=== PATIENT | male | born 1985 | race Caucasian/White ===

== ENCOUNTER 2017-06-14 23:37 | Emergency (ER) | payer OTHER ==
[2017-06-14 23:46] VITALS: TEMP 98.2
[2017-06-15] MEDS ORDERED: KETOROLAC 30 MG/ML 1 ML VIAL IVP STA
[2017-06-15] MEDS ORDERED: SODIUM CHLORIDE 0.9% 500 ML IV STA
[2017-06-15] MEDS ORDERED: MORPHINE SULFATE 10 MG/ML SYRINGE IV STA
[2017-06-15] MEDS ORDERED: ONDANSETRON 4 MG/2 ML VIAL IVP STA
--- NOTE | 2017-06-15 00:27 | ED ---
General Adult HPI - General Chief complaint: Abdominal Pain Stated complaint: Abd Pain Time Seen by Provider: 06/14/17 23:45 Source: patient, RN notes reviewed, old records reviewed Mode of arrival: wheelchair Limitations: no limitations - History of Present Illness Initial comments: This is a 30-year-old male the ER for evaluation of severe left-sided flank pain with an anterior groin pain. Patient's pain was sudden onset about 3 hours. Patient has no medical history no surgical history no prior history of prior similar pain. Patient states he follows abdominal cramping. PAtient was just about to fo to bed and became severe pain. He also states mild difficulty with urination. Mild nausea no vomiting. No fevers. No sick contacts or travel history. - Related Data Allergies Allergy/AdvReac Type Severity Reaction Status Date / Time No Known Allergies Allergy Verified 06/14/17 23:46 Review of Systems ROS Statement: Those systems with pertinent positive or pertinent negative responses have been documented in the HPI. ROS Other: All systems not noted in ROS Statement are negative. Past Medical History Past Medical History: No Reported History History of Any Multi-Drug Resistant Organisms: None Reported Past Surgical History: No Surgical Hx Reported Past Psychological History: Anxiety, Depression Smoking Status: Never smoker Past Alcohol Use History: None Reported Past Drug Use History: None Reported General Exam Limitations: no limitations General appearance: alert, in no apparent distress, anxious Head exam: Present: atraumatic, normocephalic, normal inspection Eye exam: Present: normal appearance, PERRL, EOMI. Absent: scleral icterus, conjunctival injection, periorbital swelling ENT exam: Present: normal exam, mucous membranes moist Neck exam: Present: normal inspection. Absent: tenderness, meningismus, lymphadenopathy Respiratory exam: Present: normal lung sounds bilaterally. Absent: respiratory distress, wheezes, rales, rhonchi, stridor Cardiovascular Exam: Present: regular rate, normal rhythm, normal heart sounds. Absent: systolic murmur, diastolic murmur, rubs, gallop, clicks GI/Abdominal exam: Present: soft, normal bowel sounds. Absent: distended, tenderness, guarding, rebound, rigid Extremities exam: Present: normal inspection, full ROM, normal capillary refill. Absent: tenderness, pedal edema, joint swelling, calf tenderness Back exam: Present: normal inspection Neurological exam: Present: alert, oriented X3, CN II-XII intact Psychiatric exam: Present: normal affect, normal mood Skin exam: Present: warm, dry, intact, normal color. Absent: rash Course Vital Signs 06/14/17 23:44 Temperature 98.2 F Pulse Rate 90 Respiratory 20 Rate Blood Pressure 155/89 O2 Sat by Pulse 98 Oximetry - Reevaluation(s) Reevaluation #1: 06/15/17 01:09 pain currently is adequately controlled Medical Decision Making - Medical Decision Making 32 male to the ED co severe sudden onset left flank pain, patient has Left kidney stone, severe pain now controlled, adequately hydrated and ok for discharge home - Lab Data Result diagrams: 06/15/17 00:20 06/15/17 00:20 Lab Results 06/15/17 06/15/17 06/15/17 Range/Units 00:20 00:20 00:20 WBC 14.1 H (3.8-10.6) k/uL RBC 5.37 (4.30-5.90) m/uL Hgb 15.2 (13.0-17.5) gm/dL Hct 45.8 (39.0-53.0) % MCV 85.3 (80.0-100.0) fL MCH 28.4 (25.0-35.0) pg MCHC 33.3 (31.0-37.0) g/dL RDW 14.2 (11.5-15.5) % Plt Count 213 (150-450) k/uL Neutrophils % 86 % Lymphocytes % 8 % Monocytes % 5 % Eosinophils % 1 % Basophils % 0 % Neutrophils # 12.1 H (1.3-7.7) k/uL Lymphocytes # 1.1 (1.0-4.8) k/uL Monocytes # 0.7 (0-1.0) k/uL Eosinophils # 0.1 (0-0.7) k/uL Basophils # 0.0 (0-0.2) k/uL Sodium 139 (137-145) mmol/L Potassium 3.5 (3.5-5.1) mmol/L Chloride 103 (98-107) mmol/L Carbon Dioxide 19 L (22-30) mmol/L Anion Gap 17 mmol/L BUN 19 (9-20) mg/dL Creatinine 1.30 H (0.66-1.25) mg/dL Est GFR (MDRD) Af Amer >60 (>60 ml/min/1.73 sqM) Est GFR (MDRD) Non-Af >60 (>60 ml/min/1.73 sqM) Glucose 149 H (74-99) mg/dL Plasma Lactic Acid Jose A 5.2 H* (0.7-2.0) mmol/L Calcium 10.0 (8.4-10.2) mg/dL Total Bilirubin 0.8 (0.2-1.3) mg/dL AST 73 H (17-59) U/L ALT 194 H (21-72) U/L Alkaline Phosphatase 80 (38-126) U/L Total Protein 7.5 (6.3-8.2) g/dL Albumin 4.7 (3.5-5.0) g/dL Amylase 41 (30-110) U/L Lipase 80 (23-300) U/L - Radiology Data Radiology results: report reviewed (CT abd pelvis positive for kidney stone Left ), image reviewed Disposition Clinical Impression: Left ureteral calculus Disposition: HOME SELF-CARE Condition: Good Instructions: Kidney Stones (ED) Referrals: Charles Perez MD [Primary Care Provider] - 1-2 days
[2017-06-15 00:40] LABS: Basophils % (A) 0 %; CH 29.5; CHCM 34.7; Eosinophils # (A) 0.1 k/uL (0-0.7); Eosinophils % (A) 1 %; HCT 45.8 % (39.0-53.0); HDW 2.48; HGB 15.2 gm/dL (13.0-17.5); Luc # (Auto) 0.09; Luc % (Auto) 1; Lymphocytes # (A) 1.1 k/uL (1.0-4.8); Lymphocytes % (A) 8 %; MCH 28.4 pg (25.0-35.0); MCHC 33.3 g/dL (31.0-37.0); MCV 85.3 fL (80.0-100.0); Mean Platelet Volume 8.4; Monocytes # (A) 0.7 k/uL (0-1.0); Monocytes % (A) 5 %; Neutrophils # (A) 12.1 k/uL (1.3-7.7); Neutrophils % (A) 86 %; RBC 5.37 m/uL (4.30-5.90); RDW 14.2 % (11.5-15.5); WBC 14.1 k/uL (3.8-10.6); WBC (Perox) 14.05
[2017-06-15 00:46] LABS: ALT 194 U/L (21-72); AST 73 U/L (17-59); Alkaline Phosphatase 80 U/L (38-126); Amylase 41 U/L (30-110); Anion Gap 17 mmol/L; Blood Urea Nitrogen 19 mg/dL (9-20); Carbon Dioxide 19 mmol/L (22-30); Chloride 103 mmol/L (98-107); Glucose 149 mg/dL (74-99); Non-African American GFR(MDRD) >60 (>60 ml/min/1.73 sqM); Potassium 3.5 mmol/L (3.5-5.1); Sodium 139 mmol/L (137-145); Total Bilirubin 0.8 mg/dL (0.2-1.3); Total Protein 7.5 g/dL (6.3-8.2)
--- NOTE | 2017-06-15 01:01 | CT ---
EXAMINATION TYPE: CT abdomen pelvis wo con DATE OF EXAM: 06/15/2017 COMPARISON: NONE HISTORY: left flank pain CT DLP: 307.80 mGycm Automated exposure control for dose reduction was used. TECHNIQUE: Helical acquisition of images was performed from the lung bases through the pelvis. FINDINGS: Lung bases are clear of consolidation. There is no pleural effusion. Heart size is normal. Liver spleen pancreas appear normal. Gallbladder appears normal. Bile ducts are not dilated. There is no adrenal mass. There is a faint 2 mm calcification at the left ureteral vesicle junction. There is left-sided hydronephrosis and mild hydroureter. I see no definite calculi within the kidneys . There is no intestinal wall thickening. There are no dilated loops. Appendix is not definitely seen. There is no sign of appendicitis. There is no retroperitoneal adenopathy. There is no ascites. The abrahan ny structures are intact. IMPRESSION: MILD LEFT HYDRONEPHROSIS. TINY OBSTRUCTING CALCULUS AT THE LEFT URETEROVESICAL JUNCTION.
[2017-06-15] MEDS ORDERED: TAMSULOSIN 0.4 MG CAP.ER.24H PO STA (01:08)
[2017-06-15] MEDS ORDERED: SODIUM CHLORIDE 0.9% 1,000 ML IV STA ×3 (01:08)
[2017-06-15 01:16] LABS: Creatine Kinase MB 1.3 ng/mL (0.0-2.4)
[2017-06-15] MEDS ORDERED: HYDROmorphone 1 MG/ML 1 ML SYRINGE IVP STA (01:17)
[2017-06-15 03:06] VITALS: BP 129/60; PULSE 73; RESP 16
== END 2017-06-15 03:05 | disposition home or self-care (01) ==
LOC: EC 23:37
DX: N20.1 Calculus of ureter (principal); R11.0 Nausea
CPT/HCPCS: 36415; 80053; 82150; 82550; 82553; 83605; 83690; 85025; 74176; 99284; 96374; 96375 ×3; 96361 ×3; J2270; J2405; J1885; J1170

== ENCOUNTER 2017-08-13 03:39 | Emergency (ER) | payer OTHER ==
[2017-08-13 04:20] LABS: Amphetamine Screen,Urine Detected (NotDetected); Benzodiazepines Screen,Urine Not Detected (NotDetected); Cocaine Screen,Urine Not Detected (NotDetected); Methadone Screen, Urine Not Detected (NotDetected); Opiate Screen,Urine Not Detected (NotDetected); Phencyclidine Screen,Urine Not Detected (NotDetected); Tricyclic Antidepressant,Urine Not Detected (NotDetected)
[2017-08-13 04:21] LABS: Barbiturate Screen,Urine Not Detected (NotDetected); Oxycodone Screen, Urine Detected (NotDetected); Urn Cannabinoid Scrn Detected (NotDetected)
[2017-08-13] MEDS ORDERED: SODIUM CHLORIDE 0.9% 1,000 ML IV STA (05:03)
[2017-08-13] MEDS ORDERED: LORazepam 2 MG/ML INJ IV STA ×2 (05:04→05:34)
[2017-08-13 05:12] LABS: Basophils # (A) 0.1 k/uL (0-0.2); Basophils % (A) 1 %; Eosinophils % (A) 0 %; HCT 43.9 % (39.0-53.0); HGB 14.3 gm/dL (13.0-17.5); Lymphocytes % (A) 42 %; MCH 28.9 pg (25.0-35.0); MCHC 32.6 g/dL (31.0-37.0); MCV 88.7 fL (80.0-100.0); Monocytes # (A) 0.4 k/uL (0-1.0); Monocytes % (A) 5 %; Neutrophils # (A) 3.5 k/uL (1.3-7.7); Neutrophils % (A) 49 %; Platelet Count 189 k/uL (150-450); RBC 4.96 m/uL (4.30-5.90); WBC 7.2 k/uL (3.8-10.6)
[2017-08-13 05:18] LABS: ALT 28 U/L (21-72); AST 31 U/L (17-59); Acetaminophen <10.0 ug/mL; Albumin 4.5 g/dL (3.5-5.0); Alkaline Phosphatase 70 U/L (38-126); Anion Gap 16 mmol/L; Blood Urea Nitrogen 13 mg/dL (9-20); Calcium 8.5 mg/dL (8.4-10.2); Carbon Dioxide 24 mmol/L (22-30); Chloride 105 mmol/L (98-107); Glucose 114 mg/dL (74-99); Potassium 3.5 mmol/L (3.5-5.1); Salicylate <1.0 mg/dL; Sodium 145 mmol/L (137-145); Total Bilirubin 0.3 mg/dL (0.2-1.3); Total Protein 7.4 g/dL (6.3-8.2)
[2017-08-13] MEDS ORDERED: ONDANSETRON 4 MG/2 ML VIAL IVP STA (05:27)
[2017-08-13] MEDS ORDERED: ZIPRASIDONE 20 MG CAP PO STA (05:33)
[2017-08-13 05:36] LABS: Alcohol 289 mg/dL
[2017-08-13] MEDS ORDERED: ZIPRASIDONE 20 MG VIAL IM PRN (05:37)
--- NOTE | 2017-08-13 07:32 | ED ---
Psych HPI - General Source: EMS Mode of arrival: EMS Limitations: altered mental status (appears intoxicated) - History of Present Illness MD Complaint: altered mental status -: unknown Quality: constant Improves With: none Worsens With: alcohol <RicardoLars - Last Filed: 08/13/17 07:27> <Juan Calabrese - Last Filed: 08/13/17 13:51> - General Chief Complaint: Psychiatric Symptoms Stated Complaint: ETOH Time Seen by Provider: 08/13/17 04:27 - History of Present Illness Initial Comments: This patient is a 32-year-old man brought in to have evaluation after 911 was called for extremely intoxicated person. The patient does admit to drinking alcohol and had also possibly taken some sort of pill but he is not know what he was given. The patient is denying any attempt at overdose or any suicidal ideation. Denies depression. The patient is denying any pain, cough, or dyspnea and he did want to go home. (Lars Silva) - Related Data Home Medications Medication Instructions Recorded Confirmed Escitalopram [Lexapro] 10 mg PO DAILY 08/13/17 08/13/17 Allergies Allergy/AdvReac Type Severity Reaction Status Date / Time No Known Allergies Allergy Verified 08/13/17 09:23 Review of Systems ROS Other: All systems not noted in ROS Statement are negative. Limitations: ROS unobtainable due to patients medical condition (extremely intoxicated) Constitutional: Denies: fever Respiratory: Denies: cough, dyspnea Cardiovascular: Denies: chest pain Gastrointestinal: Denies: abdominal pain, vomiting Musculoskeletal: Denies: back pain Neurological: Denies: headache Psychiatric: Denies: suicidal thoughts <RicardoLars - Last Filed: 08/13/17 07:27> ROS Other: All systems not noted in ROS Statement are negative. <Juan Calabrese - Last Filed: 08/13/17 13:51> ROS Statement: Those systems with pertinent positive or pertinent negative responses have been documented in the HPI. Past Medical History Past Medical History: No Reported History History of Any Multi-Drug Resistant Organisms: None Reported Past Surgical History: No Surgical Hx Reported Past Psychological History: Anxiety, Depression Smoking Status: Never smoker Past Alcohol Use History: Abuse Past Drug Use History: None Reported <Lars Silva - Last Filed: 08/13/17 07:27> General Exam Limitations: altered mental status General appearance: alert, appears intoxicated Head exam: Present: atraumatic, normocephalic, normal inspection Eye exam: Present: normal appearance, nystagmus. Absent: scleral icterus, conjunctival injection ENT exam: Present: normal oropharynx Neck exam: Present: normal inspection, full ROM. Absent: tenderness Respiratory exam: Present: normal lung sounds bilaterally. Absent: respiratory distress, wheezes, rales, rhonchi, stridor, chest wall tenderness Cardiovascular Exam: Present: regular rate, normal rhythm, normal heart sounds. Absent: systolic murmur, diastolic murmur, rubs, gallop GI/Abdominal exam: Present: soft. Absent: distended, tenderness, guarding, rebound, mass Extremities exam: Present: normal inspection, normal capillary refill. Absent: pedal edema, calf tenderness Back exam: Present: normal inspection. Absent: vertebral tenderness Neurological exam: Present: alert, oriented X3, CN II-XII intact. Absent: motor sensory deficit Skin exam: Present: warm, dry, intact, normal color. Absent: rash <Lars Silva - Last Filed: 08/13/17 07:27> Vital Signs 08/13/17 08/13/17 08/13/17 03:46 06:16 07:23 Temperature 99.2 F Pulse Rate 126 H 87 77 Respiratory 17 19 17 Rate Blood Pressure 161/96 113/50 111/55 O2 Sat by Pulse 95 100 100 Oximetry 08/13/17 08/13/17 10:38 13:44 Temperature 96.4 F L 98.0 F Pulse Rate 88 75 Respiratory 16 16 Rate Blood Pressure 111/61 92/54 O2 Sat by Pulse 99 100 Oximetry Medical Decision Making - Lab Data Result diagrams: 08/13/17 03:43 08/13/17 03:43 - EKG Data -: EKG Interpreted by Ut EKG shows normal: sinus rhythm, axis (normal), intervals (AK interval is 144 ms , QRS 118 ms, QTC 463 ms) Rate: tachycardia (rate approximately 123 bpm) Interpretation: nonspecific ST-T wave changes <Lars Silva - Last Filed: 08/13/17 07:27> - Lab Data Result diagrams: 08/13/17 03:43 08/13/17 03:43 <Juan Calabrese - Last Filed: 08/13/17 13:51> - Medical Decision Making The patient rested comfortably throughout the morning and into the afternoon. His mother did come in to take him home the patient is not a risk to himself or anyone else at this time is not suicidal or homicidal. He will be discharged. ( Juan Calabrese) - Lab Data Lab Results 08/13/17 08/13/17 08/13/17 Range/Units 03:43 03:43 03:55 WBC 7.2 (3.8-10.6) k/uL RBC 4.96 (4.30-5.90) m/uL Hgb 14.3 (13.0-17.5) gm/dL Hct 43.9 (39.0-53.0) % MCV 88.7 (80.0-100.0) fL MCH 28.9 (25.0-35.0) pg MCHC 32.6 (31.0-37.0) g/dL RDW 14.0 (11.5-15.5) % Plt Count 189 (150-450) k/uL Neutrophils % 49 % Lymphocytes % 42 % Monocytes % 5 % Eosinophils % 0 % Basophils % 1 % Neutrophils # 3.5 (1.3-7.7) k/uL Lymphocytes # 3.0 (1.0-4.8) k/uL Monocytes # 0.4 (0-1.0) k/uL Eosinophils # 0.0 (0-0.7) k/uL Basophils # 0.1 (0-0.2) k/uL Sodium 145 (137-145) mmol/L Potassium 3.5 (3.5-5.1) mmol/L Chloride 105 (98-107) mmol/L Carbon Dioxide 24 (22-30) mmol/L Anion Gap 16 mmol/L BUN 13 (9-20) mg/dL Creatinine 0.90 (0.66-1.25) mg/dL Est GFR (MDRD) Af Amer >60 (>60 ml/min/1.73 sqM) Est GFR (MDRD) Non-Af >60 (>60 ml/min/1.73 sqM) Glucose 114 H (74-99) mg/dL Calcium 8.5 (8.4-10.2) mg/dL Total Bilirubin 0.3 (0.2-1.3) mg/dL AST 31 (17-59) U/L ALT 28 (21-72) U/L Alkaline Phosphatase 70 (38-126) U/L Total Protein 7.4 (6.3-8.2) g/dL Albumin 4.5 (3.5-5.0) g/dL Salicylates <1.0 mg/dL Urine Opiates Screen Not Detected (NotDetected) Ur Oxycodone Screen Detected H (NotDetected) Urine Methadone Screen Not Detected (NotDetected) Ur Propoxyphene Screen Not Detected (NotDetected) Acetaminophen <10.0 ug/mL Ur Barbiturates Screen Not Detected (NotDetected) U Tricyclic Antidepress Not Detected (NotDetected) Ur Phencyclidine Scrn Not Detected (NotDetected) Ur Amphetamines Screen Detected H (NotDetected) U Methamphetamines Scrn Not Detected (NotDetected) U Benzodiazepines Scrn Not Detected (NotDetected) Urine Cocaine Screen Not Detected (NotDetected) U Marijuana (THC) Screen Detected H (NotDetected) Serum Alcohol 289 mg/dL Disposition <Lars Silva - Last Filed: 08/13/17 07:27> <Juan Calabrese - Last Filed: 08/13/17 13:51> Clinical Impression: Alcohol intoxication, Drug abuse Disposition: HOME SELF-CARE Condition: Good Instructions: Alcohol Intoxication (ED), Abuse of Alcohol (ED), Polysubstance Abuse (ED) Referrals: None,Stated [Primary Care Provider] - 1-2 days
[2017-08-13 10:40] VITALS: RESP 16
[2017-08-13 13:44] VITALS: BP 92/54; PULSE 75; TEMP 98
== END 2017-08-13 14:23 | disposition home or self-care (01) ==
LOC: EC 03:39
DX: F10.120 Alcohol abuse with intoxication, uncomplicated (principal); F19.10 Other psychoactive substance abuse, uncomplicated; F32.9 Major depressive disorder, single episode, unspecified; F41.9 Anxiety disorder, unspecified; Z79.899 Other long term (current) drug therapy
CPT/HCPCS: 99284; 96374; 96375; 96372; 82075; 36415; 93005; 80053; 85025; 80306; 83520 ×2; 80320; J2060; J2405; J3486

== ENCOUNTER 2024-11-26 20:43 | Emergency (ER) | payer OTHER ==
[2024-11-26 20:51] VITALS: RESP 18
[2024-11-26 20:54] VITALS: TEMP 97.4
--- NOTE | 2024-11-26 21:15 | ED ---
Nausea/Vomiting/Diarrhea HPI - General Chief complaint: Nausea/Vomiting/Diarrhea Stated complaint: NVD Time Seen by Provider: 11/26/24 20:55 Source: patient, EMS, RN notes reviewed Mode of arrival: EMS - History of Present Illness Initial comments: 39-year-old male presents emergency department via EMS for complaints of acute nausea, vomiting and generalized not feeling well. Patient states that he was outside washing his grandfather's car when he began to not feel well and felt like he was going to get sick. Patient had multiple episodes of emesis and was having dry heaving and sweating. Patient states that he is feeling well as compared to when symptoms started however still feels mildly nauseous and lightheaded. Currently he is denies chest pain, difficulty breathing, abdominal pain, heart palpitations, dizziness or lightheadedness. Denies cough, rhinorrhea, congestion, headaches. - Related Data Home Medications Medication Instructions Recorded Confirmed Escitalopram [Lexapro] 10 mg PO DAILY 08/13/17 08/13/17 Allergies Allergy/AdvReac Type Severity Reaction Status Date / Time No Known Allergies Allergy Verified 08/13/17 09:23 Review of Systems ROS Statement: Those systems with pertinent positive or pertinent negative responses have been documented in the HPI. ROS Other: All systems not noted in ROS Statement are negative. Past Medical History Past Medical History: No Reported History History of Any Multi-Drug Resistant Organisms: None Reported Past Surgical History: No Surgical Hx Reported Past Psychological History: Anxiety, Depression Past Alcohol Use History: Abuse Past Drug Use History: None Reported General Exam General appearance: alert, in no apparent distress ENT exam: Present: normal exam, mucous membranes moist Neck exam: Present: normal inspection. Absent: tenderness, meningismus, lymphadenopathy Respiratory exam: Present: normal lung sounds bilaterally. Absent: respiratory distress, wheezes, rales, rhonchi, stridor Cardiovascular Exam: Present: regular rate, normal rhythm, normal heart sounds. Absent: systolic murmur, diastolic murmur, rubs, gallop, clicks GI/Abdominal exam: Present: soft, normal bowel sounds. Absent: distended, tenderness, guarding, rebound, rigid Extremities exam: Present: normal inspection, full ROM, normal capillary refill. Absent: tenderness, pedal edema, joint swelling, calf tenderness Back exam: Present: normal inspection Skin exam: Present: warm, dry, intact, normal color. Absent: rash Course Vital Signs 11/26/24 11/26/24 20:47 23:29 Temperature 97.4 F L Pulse Rate 65 61 Respiratory 18 18 Rate Blood Pressure 117/71 127/78 O2 Sat by Pulse 100 98 Oximetry Medical Decision Making - Medical Decision Making Was pt. sent in by a medical professional or institution (CAMELIA Todd, SKIFF OPERATOR, urgent care, hospital, or fci...) When possible be specific @ -No Did you speak to anyone other than the patient for history (EMS, parent, family, police, friend...)? What history was obtained from this source @ -No Did you review nursing and triage notes (agree or disagree)? Why? @ -I reviewed and agree with nursing and triage notes Were old charts reviewed (outside hosp., previous admission, EMS record, old EKG, old radiological studies, urgent care reports/EKG's, fci records)? Report findings @ -No old charts were reviewed Differential Diagnosis (chest pain, altered mental status, abdominal pain women, abdominal pain men, vaginal bleeding, weakness, fever, dyspnea, syncope, headache, dizziness, GI bleed, back pain, seizure, CVA, palpatations, mental health, musculoskeletal)? @ -Differential Weakness: Hypoglycemia, shock, sepsis, hyponatremia, anemia, infection, LA, ETOH, adverse medicine reaction, overdose, stroke, this is not meant to be an all-inclusive list. EKG interpreted by me (3pts min.). @ -None X-rays interpreted by me (1pt min.). @ -None done CT interpreted by me (1pt min.). @ -None done U/S interpreted by me (1pt. min.). @ -None done What testing was considered but not performed or refused? (CT, X-rays, U/S, labs)? Why? @ -None What meds were considered but not given or refused? Why? @ -None Did you discuss the management of the patient with other professionals (professionals i.e. CAMELIA Todd, SKIFF OPERATOR, lab, RT, psych nurse, manager social, cardiothoracic physiotherapist, teacher, chemical instrumentation officer, case investigator)? Give summary @ -No Was smoking cessation discussed for >3mins.? @ -No Was critical care preformed (if so, how long)? @ -No Were there social determinants of health that impacted care today? How? (Home lessness, low income, unemployed, alcoholism, drug addiction, transportation, low edu. Level, literacy, decrease access to med. care, penitentiary, rehab)? @ -No Was there de-escalation of care discussed even if they declined (Discuss DNR or withdrawal of care, Hospice)? DNR status @ -No What co-morbidities impacted this encounter? (DM, HTN, Smoking, COPD, CAD, Cancer, CVA, ARF, Chemo, Hep., AIDS, mental health diagnosis, sleep apnea, morbid obesity)? @ -None Was patient admitted / discharged? Hospital course, mention meds given and route, prescriptions, significant lab abnormalities, going to OR and other pertinent info. @ -Discharge. 39-year-old male presented emergency department via EMS for complaints of acute nausea vomiting. Patient's vitals are stable on arrival. I evaluation the patient he states that he is nauseous and he appears mildly pale. There is no abdominal tenderness. Patient is provided with fluids and Zofran. Laboratory testing unremarkable. Urinalysis has infection, urine toxicology is negative. Reevaluation after fluids and medications patient states that he is feeling well and symptoms have resolved. Symptoms likely secondary to acute nausea and vomiting likely secondary to gastroenteritis. Supportive treatment discussed at bedside. Case discussed with Dr. Silva Undiagnosed new problem with uncertain prognosis? @ -No Drug Therapy requiring intensive monitoring for toxicity (Heparin, Nitro, Insulin, Cardizem)? @ -No Were any procedures done? @ -No Diagnosis/symptom? @ -acute nausea and vomiting Acute, or Chronic, or Acute on Chronic? @ -acute Uncomplicated (without systemic symptoms) or Complicated (systemic symptoms)? @ -uncomplicated Side effects of treatment? @ -No Exacerbation, Progression, or Severe Exacerbation? @ -No Poses a threat to life or bodily function? How? (Chest pain, USA, LA, pneumonia, PE, COPD, DKA, ARF, appy, cholecystitis, CVA, Diverticulitis, Homicidal, Suicidal, threat to staff... and all critical care pts) @ -No - Lab Data Result diagrams: 11/26/24 21:20 11/26/24 21:20 Lab Results 11/26/24 11/26/24 11/26/24 Range/Units 21:20 21:20 22:00 WBC 9.13 (4.50-10.00) 10*3/uL RBC 4.77 (4.40-5.60) 10*6/uL Hgb 14.0 (13.0-17.0) g/dL Hct 40.1 (39.6-50.0) % MCV 84.1 (80.0-97.0) fL MCH 29.4 (27.0-32.0) pg MCHC 34.9 (32.0-37.0) g/dL Plt Count 178 (140-440) 10*3/uL MPV 10.9 (9.5-12.2) fL Immature Gran % (Auto) 0.2 % Neutrophils % 51.2 % Lymphocytes % 37.1 % Monocytes % 9.3 % Eosinophils % 1.9 % Basophils % 0.3 % Immature Gran # 0.02 (0.00-0.04) 10*3/uL Neutrophils # 4.67 (1.80-7.70) 10*3/uL Lymphocytes # 3.39 (0.90-5.00) 10*3/uL Monocytes # 0.85 (0.20-1.00) 10*3/uL Eosinophils # 0.17 (0.04-0.35) 10*3/uL Basophils # 0.03 (0.00-0.10) 10*3/uL Sodium 140 (137-145) mmol/L Potassium 3.2 L (3.5-5.1) mmol/L Chloride 105 (98-107) mmol/L Carbon Dioxide 21 L (22-30) mmol/L Anion Gap 14 mmol/L BUN 20 (9-20) mg/dL Creatinine 0.89 (0.66-1.25) mg/dL Est GFR (CKD-EPI)AfAm >90 (>60 ml/min/1.73 sqM) Est GFR (CKD-EPI)NonAf >90 (>60 ml/min/1.73 sqM) Glucose 116 H (74-99) mg/dL Calcium 8.5 (8.4-10.2) mg/dL Total Bilirubin 0.4 (0.2-1.3) mg/dL AST 29 (17-59) U/L ALT 27 (4-49) U/L Alkaline Phosphatase 78 (38-126) U/L Total Protein 6.4 (6.3-8.2) g/dL Albumin 4.2 (3.5-5.0) g/dL Lipase 62 (23-300) U/L Urine Color Light Yellow Urine Appearance Clear (Clear) Urine pH 6.0 (5.0-8.0) Ur Specific Wiggins 1.028 (1.001-1.035) Urine Protein Negative (Negative) Urine Glucose (UA) Negative (Negative) Urine Ketones Negative (Negative) Urine Blood Negative (Negative) Urine Nitrite Negative (Negative) Urine Bilirubin Negative (Negative) Urine Urobilinogen <2.0 (<2.0) mg/dL Ur Leukocyte Esterase Negative (Negative) Urine Opiates Screen Not Detected (NotDetected) Ur Oxycodone Screen Not Detected (NotDetected) Urine Methadone Screen Not Detected (NotDetected) Ur Barbiturates Screen Not Detected (NotDetected) U Tricyclic Antidepress Not Detected (NotDetected) Ur Phencyclidine Scrn Not Detected (NotDetected) Ur Amphetamines Screen Not Detected (NotDetected) U Methamphetamines Scrn Not Detected (NotDetected) U Benzodiazepines Scrn Not Detected (NotDetected) Urine Cocaine Screen Not Detected (NotDetected) U Marijuana (THC) Screen Not Detected (NotDetected) Disposition Clinical Impression: Acute nausea with nonbilious vomiting Disposition: HOME SELF-CARE Condition: Good Instructions (If sedation given, give patient instructions): Acute Nausea and Vomiting (ED) Additional Instructions: Please return to the Emergency Department if symptoms worsen or any other concerns. Is patient prescribed a controlled substance at d/c from ED?: No Referrals: None,Stated [Primary Care Provider] - 1-2 days Time of Disposition: 23:12
[2024-11-26] MEDS: SODIUM CHLORIDE 0.9% 2,000 ML IV STA (21:21)
[2024-11-26] MEDS: ONDANSETRON 4 MG/2 ML VIAL IVP STA (21:22)
[2024-11-26 21:26] LABS: Basophils # (A) 0.03 10*3/uL (0.00-0.10); Basophils % (A) 0.3 %; Eosinophils # (A) 0.17 10*3/uL (0.04-0.35); Eosinophils % (A) 1.9 %; HCT 40.1 % (39.6-50.0); Lymphocytes # (A) 3.39 10*3/uL (0.90-5.00); Lymphocytes % (A) 37.1 %; MCH 29.4 pg (27.0-32.0); MCHC 34.9 g/dL (32.0-37.0); MCV 84.1 fL (80.0-97.0); Mean Platelet Volume 10.9 fL (9.5-12.2); Monocytes # (A) 0.85 10*3/uL (0.20-1.00); Monocytes % (A) 9.3 %; Neutrophils # (A) 4.67 10*3/uL (1.80-7.70); Neutrophils % (A) 51.2 %; Platelet Count 178 10*3/uL (140-440); RBC 4.77 10*6/uL (4.40-5.60); RDW 12.7 % (11.5-14.5); WBC 9.13 10*3/uL (4.50-10.00)
[2024-11-26 21:32] LABS: ALT 27 U/L (4-49); AST 29 U/L (17-59); African American GFR (CKD) >90 (>60 ml/min/1.73 sqM); Albumin 4.2 g/dL (3.5-5.0); Alkaline Phosphatase 78 U/L (38-126); Anion Gap 14 mmol/L; Blood Urea Nitrogen 20 mg/dL (9-20); Calcium 8.5 mg/dL (8.4-10.2); Carbon Dioxide 21 mmol/L (22-30); Chloride 105 mmol/L (98-107); Glucose 116 mg/dL (74-99); Lipase 62 U/L (23-300); Non-African American GFR(CKD) >90 (>60 ml/min/1.73 sqM); Potassium 3.2 mmol/L (3.5-5.1); Sodium 140 mmol/L (137-145); Total Bilirubin 0.4 mg/dL (0.2-1.3); Total Protein 6.4 g/dL (6.3-8.2)
[2024-11-26 22:27] LABS: Appearance,Urine Clear (Clear); Bilirubin,Urine Negative (Negative); Blood,Urine Negative (Negative); Color,Urine Light Yellow; Glucose,Urine (UA) Negative (Negative); Ketones,Urine Negative (Negative); Leukocyte Esterase,Urine Negative (Negative); Nitrite,Urine Negative (Negative); Protein,Urine Negative (Negative); Specific Gravity,Urine 1.028 (1.001-1.035); Urobilinogen,Urine <2.0 mg/dL (<2.0)
[2024-11-26 23:26] LABS: Amphetamine Screen,Urine Not Detected (NotDetected); Barbiturate Screen,Urine Not Detected (NotDetected); Benzodiazepines Screen,Urine Not Detected (NotDetected); Cocaine Screen,Urine Not Detected (NotDetected); Methadone Screen, Urine Not Detected (NotDetected); Opiate Screen,Urine Not Detected (NotDetected); Oxycodone Screen, Urine Not Detected (NotDetected); Phencyclidine Screen,Urine Not Detected (NotDetected); Tricyclic Antidepressant,Urine Not Detected (NotDetected); Urn Cannabinoid Scrn Not Detected (NotDetected)
[2024-11-26] MEDS: ONDANSETRON 4 MG ODT STARTER PACK 2 TAB BTL PO STA (23:29)
[2024-11-26 23:30] VITALS: BP 127/78; PULSE 61
== END 2024-11-26 23:31 | disposition home or self-care (01) ==
LOC: EC 20:43
DX: R11.2 Nausea with vomiting, unspecified (principal)
CPT/HCPCS: 36415; 80053; 83690; 85025; 81003; 80306; 99284; 96374; 96361; J2405; S0119

== ENCOUNTER 2024-11-30 00:36 | Emergency (ER) | payer OTHER ==
[2024-11-30 00:57] VITALS: TEMP 97.8
[2024-11-30] MEDS: MECLIZINE 12.5 MG TAB PO STA (02:02)
[2024-11-30] MEDS: ONDANSETRON 4 MG/2 ML VIAL IVP STA (02:03)
[2024-11-30 02:04] VITALS: RESP 18
--- NOTE | 2024-11-30 02:10 | ED ---
Dizziness HPI - General Chief Complaint: Dizziness Stated Complaint: Transfer Time Seen by Provider: 11/30/24 00:54 Source: patient, EMS, RN notes reviewed Mode of arrival: EMS - History of Present Illness MD Complaint: dizziness Timing: sudden onset Description: "room spinning", off-balance, nausea History of Trauma: No Improves With: remaining still Worsens With: movement, position Associated Symptoms: denies other symptoms - Related Data Home Medications Medication Instructions Recorded Confirmed Escitalopram [Lexapro] 10 mg PO DAILY 08/13/17 08/13/17 Previous Rx's Medication Instructions Recorded Meclizine [Antivert] 25 mg PO TID PRN #15 tab 11/30/24 Ondansetron [Zofran] 4 mg PO Q8HR PRN #12 tab 11/30/24 Allergies Allergy/AdvReac Type Severity Reaction Status Date / Time No Known Allergies Allergy Verified 11/30/24 00:57 Review of Systems ROS Statement: Those systems with pertinent positive or pertinent negative responses have been documented in the HPI. ROS Other: All systems not noted in ROS Statement are negative. Past Medical History Past Medical History: No Reported History History of Any Multi-Drug Resistant Organisms: None Reported Past Surgical History: No Surgical Hx Reported Past Psychological History: Anxiety, Depression Past Alcohol Use History: Abuse Past Drug Use History: None Reported Course Vital Signs 11/30/24 11/30/24 00:55 02:04 Temperature 97.8 F Pulse Rate 50 L 62 Respiratory 17 18 Rate Blood Pressure 140/95 121/77 O2 Sat by Pulse 98 Oximetry Medical Decision Making - Medical Decision Making Was pt. sent in by a medical professional or institution (, PA, DRUM SANDER, urgent care, hospital, or detention...) When possible be specific @ -[facility] Did you speak to anyone other than the patient for history (EMS, parent, family, police, friend...)? What history was obtained from this source @ -[No] Did you review nursing and triage notes (agree or disagree)? Why? @ -[I reviewed and agree with nursing and triage notes] Were old charts reviewed (outside hosp., previous admission, EMS record, old EKG, old radiological studies, urgent care reports/EKG's, detention records)? Report findings @ -ER chart from [facility] indicating negative head CT scan and use of Zofran, Reglan and meclizine with minimal relief prior to transfer to [facility] Differential Diagnosis (chest pain, altered mental status, abdominal pain women, abdominal pain men, vaginal bleeding, weakness, fever, dyspnea, syncope, headache, dizziness, GI bleed, back pain, seizure, CVA, palpatations, mental health, musculoskeletal)? @ -Differential Dizziness: Benign paroxysmal positional Vertigo, Meniere's disease, otitis media, acoustic neuroma, vertebrobasilar insufficiency, cerebellar stroke, encephalitis, hypovolemic, arrhythmia, coronary artery syndrome, anemia, this is not meant to be an all-inclusive list EKG interpreted by me (3pts min.). @ -Not done X-rays interpreted by me (1pt min.). @ -[None done] CT interpreted by me (1pt min.). @ -[None done] U/S interpreted by me (1pt. min.). @ -[None done] What testing was considered but not performed or refused? (CT, X-rays, U/S, labs)? Why? @ -[None] What meds were considered but not given or refused? Why? @ -[None] Did you discuss the management of the patient with other professionals (professionals i.e. , PA, DRUM SANDER, lab, RT, psych nurse, social welfare administrator, plastics fabricator or welder, teacher, ground intelligence officer, clinical case manager)? Give summary @ -[No] Was smoking cessation discussed for >3mins.? @ -[No] Was critical care preformed (if so, how long)? @ -[No] Were there social determinants of health that impacted care today? How? (Homelessness, low income, unemployed, alcoholism, drug addiction, transportation, low edu. Level, literacy, decrease access to med. care, fdc, rehab)? @ -[No] Was there de-escalation of care discussed even if they declined (Discuss DNR or withdrawal of care, Hospice)? DNR status @ -[No] What co-morbidities impacted this encounter? (DM, HTN, Smoking, COPD, CAD, Cancer, CVA, ARF, Chemo, Hep., AIDS, mental health diagnosis, sleep apnea, morbid obesity)? @ -[None] Was patient admitted / discharged? Hospital course, mention meds given and route, prescriptions, significant lab abnormalities, going to OR and other pertinent info. @ -[hospital course] Undiagnosed new problem with uncertain prognosis? @ -[No] Drug Therapy requiring intensive monitoring for toxicity (Heparin, Nitro, Insulin, Cardizem)? @ -[No] Were any procedures done? @ -[No] Diagnosis/symptom? @ -BPPV Acute, or Chronic, or Acute on Chronic? @ -Acute Uncomplicated (without systemic symptoms) or Complicated (systemic symptoms)? @ -Uncomplicated Side effects of treatment? @ -[No] Exacerbation, Progression, or Severe Exacerbation? @ -[No] Poses a threat to life or bodily function? How? (Chest pain, [place], [place], pneumonia, PE, COPD, DKA, ARF, appy, cholecystitis, CVA, Diverticulitis, Homicidal, Suicidal, threat to staff... and all critical care pts) @ -[No] Disposition Clinical Impression: Benign paroxysmal positional vertigo Disposition: HOME SELF-CARE Condition: Fair Instructions (If sedation given, give patient instructions): Benign Paroxysmal Positional Vertigo (ED), Benign Paroxysmal Positional Vertigo (DC) Additional Instructions: Continue Shayne maneuver at home as needed. Follow-up with PCP/ENT for any ongoing or worsening symptoms. Prescriptions: Meclizine [Antivert] 25 mg PO TID PRN #15 tab PRN Reason: Vertigo Ondansetron [Zofran] 4 mg PO Q8HR PRN #12 tab PRN Reason: Nausea Is patient prescribed a controlled substance at d/c from ED?: No Referrals: Edy Mclean DO [STAFF PHYSICIAN] - 1-2 days None,Stated [Primary Care Provider] - 1-2 days Li Kumari MD [STAFF PHYSICIAN] - 1-2 days Johnathan Archibald DO [Doctor of Osteopathic Medicine] - 1-2 days Time of Disposition: 03:14
[2024-11-30 03:43] VITALS: BP 105/56; PULSE 58
== END 2024-11-30 03:44 | disposition home or self-care (01) ==
LOC: EC 00:36
DX: H81.10 Benign paroxysmal vertigo, unspecified ear (principal)
CPT/HCPCS: 99284